=== PATIENT | male | born 1990 | race Caucasian/White ===

== ENCOUNTER 2017-08-15 19:19 | Emergency (ER) | payer OTHER ==
[~2017-08-15] VITALS: Ht 170.2 cm; Wt 53.3 kg
[~2017-08-15 19:19] MED LIST: ATIVAN; DEPAKOTE500 MG PO; DIVALPROEX SOD500 MG PO; ESKALITH300 M1 PO; GEODON40 MG PO; LITHIUM CARBON450 MG PO; NO HOME MEDS; NOHOMEMEDS; SEROQUEL100 MG PO; SEROquel PO; THIAMINE HCL100 MG PO; TRAZODONE HCL50 MG PO; VICODIN 5-3001 EACH PO
[2017-08-15 20:26] LABS: HEMATOCRIT 45.5 % (38.0-50.0); MCV 87.8 FL (86-99); MEAN PLAT.VOLUME 8.7 uM^3 (9.0-12.4); PLATELET COUNT 282 K/uL (156-360); RBC DIS.WIDTH-CV 12.3 % (11.8-14.6); RBC DIS.WIDTH-SD 39.5 % (39-53); RED BLOOD COUNT 5.18 M/uL (4.00-5.50); WHITE BLOOD COUNT 9.1 K/uL (4.1-10.2)
[2017-08-15 20:37] LABS: CHLORIDE 107 mEq/L (99-109); SODIUM 142 mEq/L (136-147)
[2017-08-15 20:39] LABS: GLUCOSE 99 mg/dL (70-99)
[2017-08-15 20:40] LABS: ANION GAP 9 MEQ/L (2-14)
[2017-08-15 20:41] LABS: TOTAL BILIRUBIN 0.4 mg/dL (0.0-1.0)
[2017-08-15 20:42] LABS: ALKALINE PHOSPHATASE 89 IU/L (3-129); SERUM ETHYL ALCOHOL < 10 mg/dL
[2017-08-15 20:43] LABS: GFR ESTIMATE (CALCULATED) > 59 mL/min/
[2017-08-15 20:44] LABS: UREA NITROGEN (BUN) 7 mg/dL (9-23)
[2017-08-15 21:33] VITALS: BP 117/88
== END 2017-08-15 21:36 | disposition home or self-care (01) ==
LOC: EME → EDBD 19:19 → EME 21:36
PROVIDERS: Emergency Medicine
DX: F18.10 Inhalant abuse, uncomplicated (principal); F32.9 Major depressive disorder, single episode, unspecified; F17.200 Nicotine dependence, unspecified, uncomplicated
CPT/HCPCS: 80053; 81003; 85027; 90839; 99281; 99285; G0480